=== PATIENT | female | born 1955 | race Caucasian/White ===

== ENCOUNTER 2019-02-17 09:45 | Emergency (ER) | payer BC, OTHER ==
[2019-02-17 09:54] VITALS: BP 136/64; PULSE 82; TEMP 98.3; BMI 25.1
[2019-02-17] MEDS ORDERED: predniSONE 20 MG TABLET (UD) ONE (10:28)
[2019-02-17] MEDS ORDERED: LORATADINE 10 MG TABLET ONE (10:28)
[2019-02-17] MEDS ORDERED: predniSONE 20 MG TABLET (UD) PO ONE (10:34)
[2019-02-17] MEDS ORDERED: LORATADINE 10 MG TABLET PO ONE (10:34)
--- NOTE | 2019-02-17 10:37 | PDOC ---
History of Present Illness - General Chief Complaint: Rash Stated Complaint: BODY RASH Time Seen by Provider: 02/17/19 10:01 History Source: Patient - History of Present Illness Timing/Duration: reports: yesterday Past History - Past Medical History Allergies/Adverse Reactions: Allergies Allergy/AdvReac Type Severity Reaction Status Date / Time vancomycin Allergy Verified 02/17/19 09:48 Home Medications: Ambulatory Orders Alendronate Sodium [Binosto] 70 mg PO WEEKLY 02/17/19 Citalopram Hydrobromide [Citalopram HBr] mg PO ASDIR 02/17/19 Levothyroxine Sodium [Synthroid] mcg PO DAILY 02/17/19 Loratadine [Claritin] 10 mg PO DAILY #14 tablet 02/17/19 Pantoprazole Sodium [Protonix -] 40 mg PO DAILY 02/17/19 Prednisone [Deltasone] 40 mg PO DAILY #8 tablet 02/17/19 Pregabalin [Lyrica] mg PO ASDIR 02/17/19 COPD: No - Suicide/Smoking/Psychosocial Hx Smoking History: Unknown if ever smoked Review of Systems - Review of Systems Constitutional: No: Chills, Fever Respiratory: No: Shortness of Breath, Wheezing Integumentary: Yes: Pruritus, Rash *Physical Exam - Vital Signs Last Vital Signs Temp Pulse Resp BP Pulse Ox 98.3 F 82 16 136/64 97 02/17/19 09:52 02/17/19 09:52 02/17/19 09:52 02/17/19 09:52 02/17/19 09:52 - Physical Exam General Appearance: Yes: Appropriately Dressed. No: Apparent Distress HEENT: positive: Normal Voice Neck: positive: Supple Respiratory/Chest: negative: Respiratory Distress Integumentary: positive: Hives (to face/neck) Neurologic: positive: Fully Oriented, Alert, Normal Mood/Affect Medical Decision Making - Medical Decision Making 02/17/19 10:54 63 yo F, no sig hx, here w/ pruritic rahs to face and neck after spending the night in a hotel last night. Has not taken anything for sxs. Only known allergy is to vanconycin See exam Hives Etiology unclear 1st dose oral antihistamine and prednisone given here -Dc w/ same -To return as needed *DC/Admit/Observation/Transfer Diagnosis at time of Disposition: Hives - Discharge Dispostion Disposition: HOME Condition at time of disposition: Good - Prescriptions Prescriptions: Loratadine [Claritin] 10 mg PO DAILY #14 tablet Prednisone [Deltasone] 40 mg PO DAILY #8 tablet - Referrals - Patient Instructions Printed Discharge Instructions: Jacob Additional Instructions: The cause of your rash is unclear at this time. Take medications as prescribed. If symptoms worsen, please return to the ER You are safe to fly as your condition is not contagious - Post Discharge Activity
== END 2019-02-17 10:52 | disposition home or self-care (01) ==
LOC: JERFT 09:45
DX: L50.9 Urticaria, unspecified (principal)
CPT/HCPCS: 99281-25